=== PATIENT | female | born 1945 | race Caucasian/White ===

== ENCOUNTER → 2016-10-07 | Outpatient (CLI) | payer MEDICARE, BC ==
[~2016-10-07] MED LIST: ANXIETY MED; APRESOLINE 25MG25 MG PO; ASPIRIN 32325 MG/TAB PO; BP PILL; BYSTOLIC20 MG PO; CEPHALEXIN500 M1 PO; CRESTOR5 MG PO; CYMBALTA 60MG60 MG PO; CYMBALTA30 MG PO; DIOVAN HCT 25 M1 TA1 PO; HYGROTON 2525 MG/TAB PO; HYGROTON25 MG PO; LISINOPRIL/HCTZ1 TA1 PO; NEURONTIN300 MG/CAP PO; PERCOCET 325 MG1 TA3 PO; PRAVACHOL 40MG40 MG PO; RESTORIL30 MG PO; TEMAZEPAM30 MG PO; TOPCARE ASPIRI325 MG PO; ULTRAM 50MG TAB50 MG PO; ULTRAM50 MG PO; VICODIN 5/5001 UDTAB PO; VYTORIN 10 MG-21 TAB PO; XANAX .25M0.25 MG/TA PO; [UNRECOGNIZED DRUG - OTHER] TD
== END ==
LOC: COL.RAD 07:33
DX: M25.552 Pain in left hip (principal); M16.12 Unilateral primary osteoarthritis, left hip
CPT/HCPCS: J3301; Q9967

== ENCOUNTER → 2017-03-24 | Outpatient (CLI) | payer MEDICARE, BC ==
[2017-03-24 13:40] LABS: HIV 1/2 Antibodies Non-Reactive; HIV-1p24 Antigen Non-Reactive
== END ==
LOC: COL.LAB 12:13
PROVIDERS: Orthopaedic Surgery
DX: Z01.812 Encounter for preprocedural laboratory examination (principal); M16.12 Unilateral primary osteoarthritis, left hip

== ENCOUNTER 2018-06-18 16:45 | Emergency (ER) | payer MEDICARE, BC ==
[~2018-06-18] VITALS: Ht 165.1 cm; Wt 86.4 kg
[2018-06-18 17:01] LABS: BASO % 0.4 % (0.0-2.0); EOS # 0.2 (0.0-0.7); GRAN # 5.3 (1.4-6.5); GRAN % 70.9 % (42.2-75.2); HEMATOCRIT 38.8 % (37.0-47.0); HEMOGLOBIN 12.8 g/dl (12.5-16.0); LYMPH # 1.4 (1.2-3.4); LYMPH % 19.3 % (20.0-51.0); MEAN CELL VOLUME 98 fl (80.0-100.0); MEAN CORPUSCULAR HEMOGLOBIN 32 pg (27.0-31.0); MEAN CORPUSCULAR HGB CONC 33 g/dl (33.0-37.0); MEAN PLATELET VOLUME 10.3 fl (7.4-10.4); MONO # 0.5 (0.1-0.6); MONO % 7.3 % (1.7-9.3); PLATELET COUNT 222 K/mm3 (130-400); RED BLOOD COUNT 3.98 M/mm3 (4.10-5.30); REDCELL DISTRIBUTION WIDTH-CV 12.1 % (11.5-14.5)
[2018-06-18] MEDS ORDERED: CYMBALTA 30MG30 MG PO (17:08)
[2018-06-18 17:10] LABS: ALBUMIN 4.2 gm/dL (3.5-5.0); BILIRUBIN,TOTAL 0.7 mg/dL (0.0-1.0); CALCIUM 9.3 mg/dL (8.4-10.2); CREATININE, serum 0.7 mg/dL (0.52-1.25); TOTAL PROTEIN 7.5 gm/dL (6.4-8.2)
[2018-06-18] MEDS ORDERED: LEXAPRO 5MG5 MG PO (17:11)
[2018-06-18] MEDS ORDERED: REQUIP 0.5MG0.5 MG PO (17:12)
[2018-06-18] MEDS ORDERED: AVALIDE 12.5 MG1 TA1 PO (17:12)
[2018-06-18] MEDS ORDERED: COLACE 100100 MG/CAP PO (17:13)
[2018-06-18] MEDS ORDERED: NATURAL IRON65 MG PO (17:14)
[2018-06-18] MEDS ORDERED: MELATONIN5 M1 SL (17:15)
[2018-06-18] MEDS ORDERED: VITAMIN B-1000 MCG/T PO (17:15)
[2018-06-18] MEDS ORDERED: VTAMINC250TA PO (17:15)
[2018-06-18] MEDS ORDERED: ZYRTEC 10MG10 MG PO (17:16)
[2018-06-18 17:23] LABS: TROPONIN-I 0.087 ng/mL (0.000-0.034)
[2018-06-18 19:00] VITALS: BP 140/96; PULSE 84
== END 2018-06-18 19:09 | disposition short-term general hospital (02) ==
LOC: COL.ER 16:45
PROVIDERS: Emergency Medicine
DX: I21.4 Non-ST elevation (NSTEMI) myocardial infarction (principal); I10 Essential (primary) hypertension; E78.5 Hyperlipidemia, unspecified; Z98.890 Other specified postprocedural states; Z79.82 Long term (current) use of aspirin
CPT/HCPCS: J1650; J7030

== ENCOUNTER 2018-09-25 15:01 | Outpatient (RCR) | payer MEDICARE, BC ==
[~2018-09-25 15:01] MED LIST changes: +AVALIDE 12.5 MG1 TA1 PO; +COLACE 100100 MG/CAP PO; +CYMBALTA 30MG30 MG PO; +LEXAPRO 5MG5 MG PO; +MELATONIN5 M1 SL; +NATURAL IRON65 MG PO; +REQUIP 0.5MG0.5 MG PO; +VITAMIN B-1000 MCG/T PO; +VTAMINC250TA PO; +ZYRTEC 10MG10 MG PO
== END 2018-09-26 | disposition home or self-care (01) ==
LOC: COL.CR
DX: Z48.812 Encounter for surgical aftercare following surgery on the circulatory system (principal); Z95.5 Presence of coronary angioplasty implant and graft; I21.9 Acute myocardial infarction, unspecified

== ENCOUNTER 2018-11-03 16:03 | Outpatient (RCR) | payer MEDICARE, BC | END 2018-12-28 | disposition home or self-care (01) | LOC: COL.CR | DX: Z48.812 Encounter for surgical aftercare following surgery on the circulatory system (principal); Z95.5 Presence of coronary angioplasty implant and graft; I25.2 Old myocardial infarction; I10 Essential (primary) hypertension; E78.5 Hyperlipidemia, unspecified; E66.9 Obesity, unspecified ==

== ENCOUNTER → 2020-04-24 | Outpatient (CLI) | payer MEDICARE, BC | LOC: COL.RAD 04-16 09:45 | DX: N20.0 Calculus of kidney (principal); Z87.440 Personal history of urinary (tract) infections; Z96.642 Presence of left artificial hip joint ==

== ENCOUNTER → 2021-11-24 | Outpatient (CLI) | payer MEDICARE, BC | LOC: COL.RAD 12:53 | DX: M25.552 Pain in left hip (principal) | CPT/HCPCS: J3301; Q9967 ==

== ENCOUNTER → 2023-11-30 | Outpatient (CLI) | payer MEDICARE, BC ==
[~2023-11-30] MED LIST changes: +Iohexol 300 - 10 ML VIAL IV ONE; +Triamcinolone 40 MG/ML 1 ML VIAL IJ ONE
== END ==
LOC: COL.RAD 09:51
DX: M76.12 Psoas tendinitis, left hip (principal)
CPT/HCPCS: J0665; J3301; Q9967